=== PATIENT | male | born 1950 | race Caucasian/White ===

== ENCOUNTER 2016-10-24 18:35 | Emergency (ER) | payer MEDICARE ==
--- NOTE | ~2016-10-24 | EKG ---
PATIENT: ALKA DAVIS UNIT #: [id number] Ventricular Rate: 55 BPM Atrial Rate: 55 BPM P-R Interval: 164 ms QRS Duration: 92 ms Q-T Interval: 422 ms QTC Calculation(Bezet): 403 ms P [place]: 55 degrees Calculated R [place]: 32 degrees Calculated T [place]: 29 degrees Diagnosis Line: Sinus bradycardia Diagnosis Line: Possible Left atrial enlargement Diagnosis Line: Borderline ECG Diagnosis Line: When compared with ECG of 13-APR-2016 13:00, Diagnosis Line: No significant change was found Diagnosis Line: Confirmed by PAKO CAGLE MD ([id number]) on Diagnosis Line: 10/27/2016 8:03:27 AM INTERPRETING MD: TSERING WHITEHEAD
--- NOTE | ~2016-10-24 | CT71 ---
[facility] A Service of [facility] RADIOLOGY TEXT RESULTS PATIENT: ALKA DAVIS LOCATION: SEDOF : 54 UNIT #: [id number] AGE: [address]: Izabella Mills MD SEX: M ORDER DR: [id number] [address] [address] [id number] MR#: [id number] Acc #: [id number] NAME: ALKA DAVIS : 1950 SEX: M STUDY DATE/TIME: 10/24/2016 21:05 UNIT: SEDOF ROOM: [facility] STUDY DESCRIPTION: CT Head Wo Contrast Attending Physician: Izabella Mills M.D. Ordering Physician: Milind Levin M.D. Primary Care Physician: [facility], [facility]. MEDICAL IMAGING REPORT This report is preliminary unless electronic signature is present. EXAM Head CT without contrast. HISTORY Dizziness, headache, and blurred vision beginning yesterday. TECHNIQUE Axial images were obtained without contrast. This CT exam was performed with one or more of the following radiation dose reduction techniques: automatic exposure control, adjustment of mA and/or kV according to patient size, and iterative reconstruction. FINDINGS Mild atrophy is seen and there are chronic ischemic changes around the ventricles bilaterally, as well as low density in the left occipital lobe suggesting a chronic small left occipital infarct. There is no evidence of mass lesion, hemorrhage, or edema. Dense calcification is seen in the distal vertebral arteries and the carotid siphons. There is a mucous retention cyst in the right maxillary sinus. IMPRESSION 1. 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 No evidence of hemorrhage or acute infarct. 2. Chronic right maxillary sinus inflammatory disease. 3. Fairly extensive atherosclerotic calcifications in the distal vertebrals and carotid siphons. Dictated by... [facility] A Service of [facility] RADIOLOGY TEXT RESULTS PATIENT: ALKA DAVIS LOCATION: SEDOF : 54 UNIT #: [id number] AGE: [address]: Izabella Mills MD SEX: M ORDER DR: Suresh Quiroga M.D. THIS IS AN ELECTRONICALLY VERIFIED REPORT Suresh Quiroga M.D. at 10/26/2016 7:08 AM PALMIRA/jane TD: 10/25/2016 09:37 JOB #: [id number] MEDICAL IMAGING REPORT Page 1 of 1
--- NOTE | ~2016-10-24 | CR72 ---
[facility] A Service of [facility] RADIOLOGY TEXT RESULTS PATIENT: ALKA DAVIS LOCATION: SEDOF [id number] : 54 UNIT #: [id number] AGE: [address]: Izabella Mills MD SEX: M ORDER DR: [id number] [place] [id number] MR#: [id number] Acc #: [id number] NAME: ALKA DAVIS : 1950 SEX: M STUDY DATE/TIME: 10/24/2016 20:57 UNIT: SEDOF ROOM: [facility] STUDY DESCRIPTION: CR Chest Single View Portable Attending Physician: Izabella Mills M.D. Ordering Physician: Milind Levin M.D. Primary Care Physician: [facility], [facility]. MEDICAL IMAGING REPORT This report is preliminary unless electronic signature is present. EXAM Portable chest 10/24/2016. HISTORY Dizziness, headache, and blurred vision beginning yesterday, COPD exacerbation and shortness of breath for 1 day. Benign essential hypertension. FINDINGS A single AP portable view of the chest shows both lungs to be clear. The heart is normal in size. The mediastinal contour is normal. No significant bone abnormalities are seen. IMPRESSION Normal portable chest. Dictated by... Justo Henriquez M.D. THIS IS AN ELECTRONICALLY VERIFIED REPORT Justo Henriquez M.D. at 10/25/2016 2:23 PM KRT/gz TD: 10/25/2016 08:39 JOB #: [id number] MEDICAL IMAGING REPORT Page 1 of 1
[~2016-10-24 18:35] MED LIST: ACYCLOVIR PO; ATENOLOL PO; BLOOD PRESSURE MED; CELEBREX PO; FLEXERIL PO; HCTZ PO; KETOPROFEN PO; LISINOPRIL PO; MEDROL PO; NEURONTIN600 MG PO; TRAZODONE PO; ULTRAM PO
[2016-10-24] MEDS ORDERED: ZESTRIL40 MG PO (18:38)
[2016-10-24] MEDS ORDERED: PRAVASTATIN SOD40 MG PO (18:39)
[2016-10-24] MEDS ORDERED: HYDROCHLOROTH12.5 MG PO (18:39)
[2016-10-24] MEDS ORDERED: ATENOLOL PO (18:39)
[2016-10-24] MEDS ORDERED: NORVASC10 MG PO (18:39)
[2016-10-24 19:21] LABS: BASOPHIL% 0.7 % (0-2.5); EOSINOPHIL# 0.2 X10e3 (0-0.7); EOSINOPHIL% 2.5 % (0.0-7.0); HEMATOCRIT 41.9 % (38.0-50.0); HEMOGLOBIN 14.4 gm/dL (13.0-16.0); LYMPHOCYTE# 1.4 X10e3 (1.0-3.5); LYMPHOCYTE% 23.3 % (17.0-45.0); MEAN CELL VOLUME 97.2 FL (83-96); MEAN CORPUSCULAR HEMOGLOBIN 33.2 PG (28-34); MEAN CORPUSCULAR HGB CONC 34.2 g/dL (30-36); MEAN PLATELET VOLUME 8.6 FL (6.5-11.5); MONOCYTE# 0.4 X10e3 (0-1.0); MONOCYTE% 6.5 % (3.0-12.0); PLATELET COUNT 177 X10e3 (140-420); RED BLOOD COUNT 4.32 X10e (3.90-5.60); RED CELL DISTRIBUTION WIDTH 13.4 % (11.0-15.5)
[2016-10-24 19:26] LABS: DIFF IND NO
[2016-10-24 19:37] LABS: ALBUMIN SERUM 4.4 g/dL (3.5-5.0); ALCOHOL BLOOD <5 mg/dL (0); ALKALINE PHOSPHATASE 57 U/L (32-92); ALT (SGPT) 19 U/L (10-40); AST (SGOT) 22 U/L (10-42); BILIRUBIN, DIRECT 0.1 mg/dL (0.0-0.2); BILIRUBIN,INDIRECT 0.3 mg/dL (0.0-0.9); BILIRUBIN,TOTAL 0.4 mg/dL (0.2-2.0); BLOOD UREA NITROGEN 24 mg/dL (9-23); BUN/CREATININE RATIO 18.46; CARBON DIOXIDE 26 mmol/L (22-31); CHLORIDE 105 mmol/L (100-111); CREATININE SERUM 1.3 mg/dL (0.6-1.4); GLOM FILT RATE Estimated 57.7 mL/min (>60); GLUCOSE FASTING 96 mg/dL (70-110); PROTEIN TOTAL SERUM 7.4 g/dL (6.0-8.3); SODIUM 138 mmol/L (135-145)
[2016-10-24 20:11] LABS: POC - CKMB <1.0 ng/mL (0.0-7.9); POC - MYOGLOBIN 56.9 ng/mL (0.0-169.0)
[2016-10-24 20:12] LABS: POC - TROPONIN <0.05 ng/mL (<=0.05)
[2016-10-24 20:15] LABS: URINE APPEARANCE CLEAR; URINE BILIRUBIN NEG (NEG); URINE BLOOD NEG (NEG); URINE COLOR YELLOW; URINE GLUCOSE NEG (NORM); URINE KETONE NEG (NEG); URINE LEUKOCYTE ESTERASE NEG (NEG); URINE NITRATE NEG (NEG); URINE PROTEIN NEG (NEG); URINE UROBILINOGEN 0.2 MG/DL (NORM)
[2016-10-24 20:16] LABS: MICRO INDICATED? NO; URINE SOURCE CLEAN CATCH
[2016-10-24 20:24] LABS: AMPHETAMINE NEG (NEG); BARBITURATES NEG (NEG); BENZODIAZEPINES NEG (NEG); COCAINE NEG (NEG); MARIJUANA NEG (NEG); OPIATES NEG (NEG); TRICYCLIC ANTIDEPRESSANTS NEG (NEG); U METHADONE NEG (NEG)
== END 2016-10-25 05:53 ==
LOC: SED 18:35 → SEDOF 22:30 → SED 22:30
PROVIDERS: Emergency Medicine
DX: R51 Headache (principal); H53.8 Other visual disturbances; I10 Essential (primary) hypertension; F17.210 Nicotine dependence, cigarettes, uncomplicated; Z79.899 Other long term (current) drug therapy
CPT/HCPCS: 36415; 70450; 71010; 80048; 80076; 80307; 81003; 82553; 82947; 83874; 84484; 85025; 93005; 96361; 96374; 96375; 99285; G0480; J1200; J1885